=== PATIENT | male | born 1940 | race Caucasian/White ===

== ENCOUNTER 2020-04-13 00:30 | Day surgery (SDC) | payer MEDICARE, OTHER ==
[~2020-04-13] VITALS: Ht 182.8 cm; Wt 84.3 kg
[2020-04-13 00:50] LABS: BASOPHILS % (AUTO) 0 % (0-10); EOSINOPHILS # (AUTO) 0.1 10^3/uL (0.0-0.3); EOSINOPHILS % (AUTO) 1 % (0-10); HEMATOCRIT 38 % (40-54); HEMOGLOBIN 13.1 g/dL (13.3-17.7); LYMPHOCYTES # (AUTO) 4.2 10^3/uL (1.0-4.0); LYMPHOCYTES % (AUTO) 42 % (12-44); MEAN CORPUSCULAR HEMOGLOBIN 30 pg (25-34); MEAN CORPUSCULAR HGB CONC 35 g/dL (32-36); MEAN CORPUSCULAR VOLUME 86 fL (80-99); MEAN PLATELET VOLUME 10.7 fL (9.0-12.2); MONOCYTES # (AUTO) 0.7 10^3/uL (0.0-1.0); MONOCYTES % (AUTO) 7 % (0-12); NEUTROPHILS # (AUTO) 4.8 10^3/uL (1.8-7.8); NEUTROPHILS % (AUTO) 49 % (42-75); PLATELET COUNT 190 10^3/uL (130-400); WHITE BLOOD COUNT 9.9 10^3/uL (4.3-11.0)
[2020-04-13 01:02] LABS: ALBUMIN 4.1 GM/DL (3.2-4.5); CHLORIDE 96 MMOL/L (98-107); POTASSIUM 3.2 MMOL/L (3.6-5.0); SODIUM 137 MMOL/L (135-145)
[2020-04-13 01:03] LABS: CALCIUM 9.6 MG/DL (8.5-10.1); PROTHROMBIN TIME PATIENT 13.3 SEC (12.2-14.7)
[2020-04-13 01:04] LABS: GLUCOSE 157 MG/DL (70-105); TOTAL PROTEIN 7.7 GM/DL (6.4-8.2)
[2020-04-13 01:05] LABS: CARBON DIOXIDE 25 MMOL/L (21-32)
[2020-04-13 01:06] LABS: BILIRUBIN,TOTAL 0.7 MG/DL (0.1-1.0)
[2020-04-13 01:08] LABS: ALKALINE PHOSPHATASE 81 U/L (40-136); CREATININE SERUM 1.23 MG/DL (0.60-1.30); GFR ESTIMATED 57
[2020-04-13 01:09] LABS: BUN/CREATININE RATIO 13
[2020-04-13 01:11] LABS: ALANINE AMINOTRANSFERASE 21 U/L (0-55); CREATINE KINASE 134 U/L (30-200); MAGNESIUM 2.1 MG/DL (1.6-2.4)
--- NOTE | 2020-04-13 01:41 | ED General ---
General Chief Complaint: Chest Pain Stated Complaint: UPPER ABD PAIN Source of Information: Patient History of Present Illness Date Seen by Provider: Apr 13, 2020 Time Seen by Provider: 00:32 Initial Comments PT ARRIVES VIA EMS --HERE VISITING MULTIPLE FAMILY MEMBERS FROM [place], [place]. HAS BEEN HERE SINCE MONDAY STATES TONIGHT, JUST PRIOR TO ARRIVAL, HE GOT OUT OF BED TO GO TO THE BATHROOM TO URINATE, AND WAS VERY WEAK AND WENT DOWN TO HIS KNEES, GOT BACK UP IN BED--TOOK HIM A COUPLE OF TRIES TO GET OUT OF BED. WALKED TO THE BATHROOM AND THEN PASSED OUT--STATES HE DID NOT INJURE HIMSELF. STATES HE WAS OUT ONLY BRIEFLY, AND HIS HEARD HIM AND TOLD HIM THAT HE HAD PASSED OUT FOR A LITTLE BIT. PT STATES THAT HE WAS VERY CLAMMY AND PALE, AND HE HAD EPIGASTRIC PAIN AND SHORTNESS OF BREATH AND THEN HE TOOK A NITROGLYCERIN AND HE FELT MUCH BETTER--EPIGASTRIC PAIN AND SHORTNESS OF BREATH WENT AWAY EMS REPORT THAT BP WAS 90 SYSTOLIC ON THEIR ARRIVAL, THEN UP TO 114/67 WITHOUT TREATMENT AND PT IS NOW SYMPTOM-FREE. ACCUCHECK 179 BY EMS NO NAUSEA/VOMITING/DIARRHEA. NO HEADACHE NO VISION CHANGES NO PALPITATIONS NO SWELLING IN LEGS/ FEET OR PAIN IN CALVES NO FEVER OR RECENT ILLNESS HAS CHRONIC COUGH FOR 3 YEARS, AND IS NO DIFFERENT THAN NORMAL. PT HAD UT 12/2018 AND HAD STENT X 1 PCP: DR. MAHAJAN, [place], [place] DEPLOYMENT SPECIALIST: DR. MADERA [place], [place] Allergies and Home Medications Allergies Coded Allergies: No Known Drug Allergies (Unverified , 04/13/20) Home Medications Acetazolamide 125 Mg Tablet, 125 MG PO BID PRN for MIGRAINE INDUCED WEATHER WOOD, (Reported) Amlodipine Besylate 10 Mg Tablet, 10 MG PO 1800, (Reported) Aspirin 81 Mg Tablet., 81 MG PO DAILY, (Reported) Atorvastatin Calcium 40 Mg Tablet, 40 MG PO MO,WE,FR, (Reported) TAKES AT BEDTIME Calcium Carb & Lact/Vitamin D3 1 Each Tablet, 2 EACH PO BID, (Reported) Chlorthalidone 25 Mg Tablet, 25 MG PO DAILY, (Reported) Erenumab-Aooe 140 Mg/1 Ml Auto.injct, 140 MG SQ MONTHLY, (Reported) Finasteride 5 Mg Tablet, 5 MG PO DAILY, (Reported) Irbesartan 300 Mg Tablet, 300 MG PO 1800, (Reported) Levetiracetam 500 Mg Tablet, 500 MG PO BID, (Reported) Loratadine 10 Mg Tablet, 10 MG PO DAILY, (Reported) Magnesium Oxide 500 Mg Capsule, 500 MG PO DAILY, (Reported) Melatonin 5 Mg Tablet, 15 MG PO HS, (Reported) TAKES 3 (5MG) TABS Multivitamin 1 Each Tablet, 1 EACH PO DAILY, (Reported) Nitroglycerin 0.4 Mg Tab.subl, 0.4 MG SL UD PRN for CHEST PAIN (ANGINA), (Reported) Omeprazole Magnesium 20 Mg Tablet.dr, 20 MG PO DAILY PRN for HEARTBURN, (Reported) Orphenadrine Citrate 100 Mg Tablet.er, 100 MG PO HS, (Reported) Orphenadrine Citrate 100 Mg Tablet.er, 100 MG PO DAILY PRN for MUSCLE SPASMS, (Reported) Prochlorperazine Maleate 10 Mg Tablet, 10-20 MG PO DAILY PRN for NAUSEA/VO MITING-4TH LINE, (Reported) Riboflavin 100 Mg Tablet, 100 MG PO DAILY, (Reported) Tamsulosin HCl 0.4 Mg Cap, 0.4 MG PO DAILY, (Reported) Turmeric/Turmeric Root Extract 1 Each Capsule, 1 EACH PO DAILY, (Reported) Patient Home Medication List Home Medication List Reviewed: Yes Review of Systems Review of Systems Constitutional: see HPI; No fever EENTM: no symptoms reported Respiratory: see HPI, short of breath Cardiovascular: see HPI, chest pain (LOWER STERUM/EPIGASTRIC AREA); No edema, No palpitations, No syncope Gastrointestinal: see HPI, abdominal pain; No diarrhea, No nausea, No vomiting Genitourinary: no symptoms reported Musculoskeletal: no symptoms reported; No back pain Skin: no symptoms reported Psychiatric/Neurological: See HPI (SYNCOPE); Denies Headache, Denies Numbness, Denies Paresthesia, Denies Seizure, Denies Tingling; Weakness (GENERALIZED WEAKNESS) Hematologic/Lymphatic: No Symptoms Reported Immunological/Allergic: no symptoms reported Past Zzgmbpo-Khhivm-Mmpzik Hx Past Med/Social Hx: Reviewed and Corrections made Patient Social History Alcohol Use: Denies Use Smoking Status: Never a Smoker Recent Hopitalizations: No Immunizations Up To Date Date of Influenza Vaccine: Dec 14, 2019 Seasonal Allergies Seasonal Allergies: No Past Medical History Surgeries: Yes ("2 hernia, right knee, right shoulder") Abdominal, Cardiac, Coronary Stent, Orthopedic Respiratory: No Cardiac: Yes (UT 12/2018 WITH STENT X 1) Coronary Artery Disease, Heart Attack, High Cholesterol, Hypertension Neurological: Yes (DAILY MIGRAINES--ON MULTIPLE MEDS FOR THIS) Headaches /Migraines Genitourinary: Yes Benign Prostatic Hyperpl Gastrointestinal: Yes Gastroesophageal Reflux Musculoskeletal: Yes (right knee, right shoulder SURGERIES) Arthritis Endocrine: No HEENT: No Cancer: No Psychosocial: No Integumentary: No Blood Disorders: No Physical Exam Vital Signs Vital Signs - First Documented 04/13/20 00:30 Temp 37.0 Pulse 59 Resp 16 B/P (MAP) 115/81 (92) Pulse Ox 97 O2 Delivery Room Air Capillary Refill : Height, Weight, BMI Height: '" Weight: lbs. oz. kg; BMI Method: General Appearance: No Apparent Distress, WD/WN HEENT: PERRL/EOMI Neck: Full Range of Motion, Normal Inspection, Non Tender, Supple; No Carotid Bruit, No JVD Respiratory: Chest Non Tender, Normal Breath Sounds, No Accessory Muscle Use, No Respiratory Distress Cardiovascular: Regular Rate, Rhythm, No Edema, No JVD, No Murmur, Normal Peripheral Pulses Gastrointestinal: Non Tender, Soft Back: No CVA Tenderness Extremity: Normal Capillary Refill, Normal Inspection, Normal Range of Motion, Non Tender, No Calf Tenderness, No Pedal Edema Neurologic/Psychiatric: Alert, Oriented x3, No Motor/Sensory Deficits, Normal Mood/Affect, bid clerk II-XII Norm as Tested Skin: Normal Color, Warm/Dry; No Rash Progress/Results/Core Measures Suspected Sepsis SIRS Temperature: Pulse: Respiratory Rate: Laboratory Tests 04/13/20 00:30: White Blood Count 9.9 Blood Pressure / Mean: Laboratory Tests 04/13/20 00:30: Creatinine 1.23, INR Comment 1.0, Platelet Count 190, Total Bilirubin 0.7 Results/Orders Lab Results Laboratory Tests Test 04/13/20 00:30 04/13/20 00:40 04/13/20 04:10 04/13/20 04:46 Range/Units White Blood Count 9.9 4.3-11.0 10^3/uL Red Blood Count 4.42 4.30-5.52 10^6/uL Hemoglobin 13.1 L 13.3-17.7 g/dL Hematocrit 38 L 40-54 % Mean Corpuscular Volume 86 80-99 fL Mean Corpuscular Hemoglobin 30 25-34 pg Mean Corpuscular Hemoglobin Concent 35 32-36 g/dL Red Cell Distribution Width 12.8 10.0-14.5 % Platelet Count 190 130-400 10^3/uL Mean Platelet Volume 10.7 9.0-12.2 fL Immature Granulocyte % (Auto) 0 % Neutrophils (%) (Auto) 49 42-75 % Lymphocytes (%) (Auto) 42 12-44 % Monocytes (%) (Auto) 7 0-12 % Eosinophils (%) (Auto) 1 0-10 % Basophils (%) (Auto) 0 0-10 % Neutrophils # (Auto) 4.8 1.8-7.8 10^3/uL Lymphocytes # (Auto) 4.2 H 1.0-4.0 10^3/uL Monocytes # (Auto) 0.7 0.0-1.0 10^3/uL Eosinophils # (Auto) 0.1 0.0-0.3 10^3/uL Basophils # (Auto) 0.0 0.0-0.1 10^3/uL Immature Granulocyte # (Auto) 0.0 0.0-0.1 10^3/uL Prothrombin Time 13.3 12.2-14.7 SEC INR Comment 1.0 0.8-1.4 Activated Partial Thromboplast Time 26 24-35 SEC Sodium Level 137 135-145 MMOL/L Potassium Level 3.2 L 3.6-5.0 MMOL/L Chloride Level 96 L 98-107 MMOL/L Carbon Dioxide Level 25 21-32 MMOL/L Anion Gap 16 H 5-14 MMOL/L Blood Urea Nitrogen 16 7-18 MG/DL Creatinine 1.23 0.60-1.30 MG/DL Estimat Glomerular Filtration Rate 57 BUN/Creatinine Ratio 13 Glucose Level 157 H 70-105 MG/DL Calcium Level 9.6 8.5-10.1 MG/DL Corrected Calcium 9.5 8.5-10.1 MG/DL Magnesium Level 2.1 1.6-2.4 MG/DL Total Bilirubin 0.7 0.1-1.0 MG/DL Aspartate Amino Transf (AST/SGOT) 24 5-34 U/L Alanine Aminotransferase (ALT/SGPT) 21 0-55 U/L Alkaline Phosphatase 81 40-136 U/L Total Creatine Kinase 134 30-200 U/L Creatine Kinase MB 3.0 <6.6 NG/ML Myoglobin 91.3 10.0-92.0 NG/ML Troponin I < 0.028 < 0.028 <0.028 NG/ML B-Type Natriuretic Peptide 15.4 <100.0 PG/ML Total Protein 7.7 6.4-8.2 GM/DL Albumin 4.1 3.2-4.5 GM/DL Coronavirus 2019 ([facility]) Negative Negative Urine Color YELLOW Urine Clarity CLEAR Urine pH 8.0 5-9 Urine Specific [place] 1.010 L 1.016-1.022 Urine Protein NEGATIVE NEGATIVE Urine Glucose (UA) NEGATIVE NEGATIVE Urine Ketones NEGATIVE NEGATIVE Urine Nitrite NEGATIVE NEGATIVE Urine Bilirubin NEGATIVE NEGATIVE Urine Urobilinogen 0.2 < = 1.0 MG/DL Urine Leukocyte Esterase NEGATIVE NEGATIVE Urine RBC (Auto) 1+ H NEGATIVE Urine RBC 2-5 H /HPF Urine WBC RARE /HPF Urine Squamous Epithelial Cells NONE /HPF Urine Crystals NONE /LPF Urine Bacteria NEGATIVE /HPF Urine Casts NONE /LPF Urine Mucus NEGATIVE /LPF Urine Culture Indicated NO My Orders Orders - MERY ROTHMAN DO Ed Iv/Invasive Line Start (04/13/20 00:37) Monitor-Rhythm Ecg Trace Only (04/13/20 00:37) BNP (04/13/20 00:37) Cbc With Automated Diff (04/13/20 00:37) Comprehensive Metabolic Panel (04/13/20 00:37) Creatine Kinase (04/13/20 00:37) Creatine Kinase Mb (04/13/20 00:37) Magnesium (04/13/20 00:37) Protime With Inr (04/13/20 00:37) Partial Thromboplastin Time (04/13/20 00:37) Ua Culture If Indicated (04/13/20 00:37) Myoglobin Serum (04/13/20 00:37) Troponin I (04/13/20 00:37) Ed Iv/Invasive Line Start (04/13/20 00:37) Covid 19 Inhouse Test (04/13/20 00:37) Ct [place] Chest/Noang Abd-Pelv W (04/13/20 01:25) Chest 1 View, Ap/Pa Only (04/13/20 01:26) Ct Head Wo-R/O Stroke (04/13/20 01:41) Ed Iv/Invasive Line Start (04/13/20 02:43) Ed Iv/Invasive Line Start (04/13/20 02:43) Ns Iv 1000 Ml (Sodium Chloride 0.9%) (04/13/20 02:45) Troponin I (04/13/20 03:59) Ekg Tracing (04/13/20 03:59) Iohexol Injection (Omnipaque 350 Mg/Ml 1 (04/13/20 04:15) Received Contrast (Hold Metformin- Contr (04/13/20 04:15) Ns (Ivpb) (Sodium Chloride 0.9% Ivpb Bag (04/13/20 04:15) Potassium Chloride (Tablet) (Klor Con Ta (04/13/20 04:15) Enoxaparin Injection (Lovenox Injection) (04/13/20 04:45) Aspirin Chewable Tablet (Baby Aspirin Ch (04/13/20 05:00) Medications Given in ED Vital Signs/I&O 04/13/20 04/13/20 04/13/20 04/13/20 08:38 11:48 12:52 13:00 Temp 36.7 36.9 Pulse 66 66 69 62 Resp 15 12 B/P (MAP) 119/68 (85) 135/75 (95) Pulse Ox 95 95 O2 Delivery Room Air Room Air 04/13/20 04/13/20 04/13/20 13:00 15:28 19:29 Temp 36.8 37.2 Pulse 62 71 Resp 12 18 B/P (MAP) 133/58 (83) 120/96 (104) Pulse Ox 94 94 O2 Delivery Room Air Room Air Room Air Capillary Refill : Progress Note : Progress Note COVID TESTING DONE AND RAPID TEST WAS NEGATIVE PT HAS HAD NO COVID-19 SYMPTOMS, AND NO KNOWN EXPOSURE TO COVID, BUT HAS BEEN TRAVELING THIS WEEKEND AND HAS BEEN AROUND MULTIPLE FAMILY MEMBERS PT HAD COUPLE OF BRIEF EPISODES OF BRADYCARDIA DOWN TO LOW 30'S--PT ASYMPTOMATIC WHILE LAYING IN BED. THEN HR BACK UP TO 60'S. PT ALSO HAD EPISODES OF BIGEMINY, AGAIN ASYMPTOMATIC. PT HAD NO SYMPTOMS OF ANY KIND FOR ENTIRE ER STAY REPEAT EKG AND TROPONIN DONE AND ARE BOTH NEGATIVE/UNCHANGED EKG PT UNABLE TO VOID, STATES BLADDER FEELS FULL, BUT FREQUENTLY HAS DIFFICULTY URINATING HICKEY PLACED WITH IMMEDIATE RETURN OF > 600 ML URINE ECG Initial ECG Impression Date: Apr 13, 2020 Initial ECG Impression Time: 00:36 Initial ECG Rate: 62 Initial ECG Rhythm: Normal Sinus (IVCD) Initial ECG Comparisson: No Previous ECG Available EKG : EKG Time: 04:09 Rate: 66 Rhythm: Normal Sinus (IVCD) ECG Comparisson: Unchanged Diagnostic Imaging Comments CXR--NO ACUTE PROCESS, PENDING RADIOLOGIST REVIEW CT HEAD--NO ACUTE INTRACRANIAL PROCESS, PER [facility] VIA FAX AT [address] CT ANGIOGRAM CHEST / ABDOMEN AND PELVIS--NO P.E. OR ACUTE PROCESS, PER [facility] VIA FAX AT [id number] Reviewed: Reviewed by Ak Departure Communication (Admissions) [id number]--SPOKE WITH DR. MICHAEL, HOSPITALIST, ACCEPTS PT FOR ADMIT. Impression Primary Impression: SYNCOPAL EPISODE Additional Impressions: Chest pain Person under investigation for COVID-19 EPISODES OF BRADYCARDIA EPISODES OF BIGEMINY HX OF UT WITH STENT Urinary retention Disposition: ADMITTED INPATIENT Condition: Stable Admissions Decision to Admit Reason: Admit from ER (General) Decision to Admit/Date: Apr 13, 2020 Time/Decision to Admit Time: 04:25 MERY ROTHMAN DO Apr 13, 2020 01:41
[2020-04-13] MEDS ORDERED: NS IV 1000 ML 1,000 ML IV SCH (02:45)
[2020-04-13] MEDS ORDERED: HOLD METFORMIN - RECEIVED CONTRAST 20 ML VIAL IV SCH (04:15)
[2020-04-13] MEDS ORDERED: KCL 10 MEQ TAB (MICRO K) PO ONE (04:15)
[2020-04-13] MEDS ORDERED: IOHEXOL 350 MG/ML 100 ML (OMNIPAQUE 350) VIAL IV ONE (04:15)
[2020-04-13] MEDS ORDERED: NS 100 ML (IVPB) BAG IV ONE (04:15)
[2020-04-13] MEDS ORDERED: ENOXAPARIN 80 MG/0.8 ML (LOVENOX) SYR SC ONE (04:45)
[2020-04-13 04:52] LABS: BILIRUBIN,URINE NEGATIVE (NEGATIVE); CLARITY,URINE CLEAR; COLOR,URINE YELLOW; GLUCOSE, URINE (UA) NEGATIVE (NEGATIVE); KETONES,URINE NEGATIVE (NEGATIVE); LEUKOCYTE ESTERASE ,URINE NEGATIVE (NEGATIVE); NITRITE,URINE NEGATIVE (NEGATIVE); PROTEIN,URINE NEGATIVE (NEGATIVE)
[2020-04-13] MEDS ORDERED: ASPIRIN 81 MG CHEW (CHILDREN'S ASA) PO ONE (05:00)
[2020-04-13 05:01] LABS: BACTERIA,URINE NEGATIVE /HPF; WBC,URINE RARE /HPF
--- NOTE | 2020-04-13 05:43 | Diagnostic Imaging Report ---
INDICATION: CP COMPARISON: None FINDINGS: Single frontal view of the chest demonstrates normal heart size and pulmonary vascularity. The lungs show low inspiratory volumes, but are otherwise clear. No large pleural effusion or pneumothorax is seen. The visualized osseous structures show no acute abnormalities. IMPRESSION: 1. No acute cardiopulmonary process. Dictated by: Dictated on workstation # [id number]
--- NOTE | 2020-04-13 05:56 | Diagnostic Imaging Report ---
INDICATION: Neurological deficits. TECHNIQUE: Routine non contrast-enhanced axial images were obtained from the skull base to the vertex. Auto Exposure Controls were utilized during the CT exam to meet ALARA standards for radiation dose reduction COMPARISON: None. FINDINGS: The ventricles and cortical sulci are diffusely prominent, compatible with age-related volume loss. There are confluent areas of abnormal, low attenuation in the periventricular white matter. This is consistent with small vessel ischemic changes; age-indeterminate. There is no prior study available for comparison. There is no midline shift or mass-effect. No acute intra-axial hemorrhage is seen. There are no abnormal areas of increased or decreased density to suggest acute hemorrhage or edema. No extra-axial masses or collections are present. The bony calvarium is intact. The visualized paranasal sinuses show small air-fluid levels within the included portions of the bilateral maxillary sinuses. The mastoid air cells are clear. IMPRESSION: 1. No acute intracranial abnormality. No CT evidence of mass, acute infarct or intracranial hemorrhage. 2. Small vessel ischemic changes in the periventricular and subcortical white matter; likely chronic. 3. Bilateral maxillary sinus disease. Correlation with acute sinusitis is recommended. 4. I agree with [place] report. Dictated by: Dictated on workstation # [id number]
[2020-04-13] MEDS ORDERED: 1/2 NS W/KCL 20 MEQ/L 1,000 ML IV ONE (06:27)
[2020-04-13] MEDS: 1/2 NS W/KCL 20 MEQ/L 1,000 ML IV SCH ×2 (07:00→15:21)
[2020-04-13] MEDS ORDERED: ONDANSETRON 4 MG/2 ML (SDV) Z0FRAN IVP PRN (07:00)
[2020-04-13] MEDS ORDERED: morphine INJ 4 MG/ML 1 ML (VIAL/SYRINGE) IV PRN (07:00)
[2020-04-13] MEDS ORDERED: NITROGLYCERIN 0.4 MG SL TABS BTL 25'S SL PRN ×2 (07:00→14:30)
--- NOTE | 2020-04-13 07:02 | Diagnostic Imaging Report ---
Exam: 1. CT angiography chest with intravenous contrast. 2. CT abdomen and pelvis with intravenous contrast. Date: April 13, 2020. Indication: 79-year-old male, chest and epigastric pain. Comparison: None. Technique: 1. Axial CT angiography images of the chest were obtained with intravenous contrast. Coronal and sagittal reformats as well as 3-dimensional reformats were obtained and provided. 2. Axial CT images of the abdomen and pelvis were obtained following the intravenous administration of contrast. Coronal and sagittal reformats were obtained and provided. All CT scans use one or more of the following dose optimizing techniques: automated exposure control, MA and/or KvP adjustment based on a patient size and exam type, or iterative reconstruction. . Findings: There are dependent predominantly linear opacities in the right lower lobe and left lower lobe most consistent with atelectasis. There is no identified pulmonary nodule. There is no lung mass. There is no additional focal airspace consolidation. There is no pneumothorax. There is no pleural effusion. The central airways are patent. There is no identified pulmonary embolus. The main pulmonary artery is normal in caliber. The heart is borderline enlarged. There are atherosclerotic calcifications. There is a bovine aortic arch. There is no identified abnormally enlarged mediastinal, hilar, or axillary lymph node which meets CT size criteria for adenopathy. There is an 11 mm nodule in thyroid isthmus. The liver is normal in size and contour. There is no identified liver lesion. The main, right, left portal veins are patent. The gallbladder is unremarkable. There is no intrahepatic or extrahepatic bile duct dilation. The main pancreatic duct is not abnormally dilated. Unremarkable appearance of the pancreatic parenchyma. The spleen is normal in size. The adrenal glands are unremarkable. The renal parenchyma is unremarkable in appearance. The urinary collecting systems are not distended. There is no identified renal or ureteral stone. Urinary bladder is unremarkable. The intestinal tract is not distended. There is no evidence of acute appendicitis. There is high attenuation in the appendix without dilation of the appendix or adjacent inflammatory stranding. There is no free intraperitoneal air. There is no drainable fluid collection. There is no free pelvic fluid. There is a very small fat-containing umbilical hernia. There are atherosclerotic calcifications. There is no identified abnormally enlarged lymph node in the abdomen or pelvis meeting CT size criteria for adenopathy. 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 There are bilateral sacroiliac degenerative changes. There are degenerative changes of the spine. There is bilateral glenohumeral arthritis. There is no identified acute bony abnormality. Impression: 1. No identified acute cardiopulmonary abnormality. 2. No identified acute abnormality in the abdomen or pelvis. 3. 11 mm nodule in the thyroid isthmus. Consider nonemergent thyroid ultrasound for further assessment. Dictated by: Dictated on workstation # [id number]
[2020-04-13 08:38] VITALS: BP 119/68
--- NOTE | 2020-04-13 08:43 | Consultation-Cardiology ---
HPI-Cardiology Cardiology Consultation: Date of Consultation 04/13/20 Time Seen by a Provider: 08:45 Date of Admission 04-12-20 Attending Physician Alondra Davis MD Admitting Physician No,Local Physician Consulting Physician Barak Pizano MD HPI: Chief Complaint: Chest pain Mr. Pa is a 79 yr old male admitted to [facility] from the ED with c/o CP. He is from [place], [place] and is visiting his son and grandson. He woke up around 11:30 last night to use the BR. He reports he sat up on the side of the bed and felt weak, dizzy. He sat down for a few minutes, began to feel better. He got up and walked to the bathroom, but began to feel weak, dizzy, SOB, diaphoretic and his legs gave out on him. He states he caught himself on the bathroom vanity and feel to his knees. His heard him and found him on the floor. He was unable to get himself up on his own. His son came and helped him. He was initially having epigastric discomfort. He was able to get to the dining room table with assistance from his son. He was having chest pressure radiating across his chest. He states he still felt weak, dizzy, clammy. He reports it lasted for approx 45 minutes. He states he did take one nitro at home, which did help. He states this morning while getting up to use the urinal he did have some lower chest discomfort which did not radiate. Rates it as a 1 on a 1-10 pain scale. Review of Systems-Cardiology Review of Systems Constitutional: No chills, No fever; lightheadedness Eyes: No vision change Ears/Nose/Throat: No epistaxis, No recent hearing loss Respiratory: As described under HPI Cardiovascular: As described under HPI Gastrointestinal: No diarrhea, No nausea, No vomiting Genitourinary: No dysuria, No hematuria Musculoskeletal: back pain Skin: No rash on exposed areas, No ulcerations on exposed areas Psychiatric/Neurological: As described under HPI Hematologic: No bleeding abnormalities NFG-Pslauu-Kiotfr Hx Patient Social History Smoking Status: Never a Smoker Immunizations Up To Date Date of Influenza Vaccine: Dec 14, 2019 Past Medical History PMH As described under Assessment. Family Medical History Family Medical History: He reports his mother had CAD and PR. He reports his father at age 55 from an PR. He reports a brother with CAD who was on the transplant list, . He reports a sister with an PR. He reports a brother with cardiomyopathy. He reports another brother with CAD. He reports 2 daughters and a son with Factor V Leiden Allergies and Home Medications Allergies Coded Allergies: No Known Drug Allergies (Unverified , 04/13/20) Home Medications Acetazolamide 125 Mg Tablet, 125 MG PO BID PRN for MIGRAINE INDUCED WEATHER WOOD, (Reported) Amlodipine Besylate 10 Mg Tablet, 10 MG PO 1800, (Reported) Aspirin 81 Mg Tablet.dr, 81 MG PO DAILY, (Reported) Atorvastatin Calcium 40 Mg Tablet, 40 MG PO MO,WE,FR, (Reported) TAKES AT BEDTIME Calcium Carb & Lact/Vitamin D3 1 Each Tablet, 2 EACH PO BID, (Reported) Chlorthalidone 25 Mg Tablet, 25 MG PO DAILY, (Reported) Erenumab-Aooe 140 Mg/1 Ml Auto.injct, 140 MG SQ MONTHLY, (Reported) Finasteride 5 Mg Tablet, 5 MG PO DAILY, (Reported) Irbesartan 300 Mg Tablet, 300 MG PO 1800, (Reported) Levetiracetam 500 Mg Tablet, 500 MG PO BID, (Reported) Loratadine 10 Mg Tablet, 10 MG PO DAILY, (Reported) Magnesium Oxide 500 Mg Capsule, 500 MG PO DAILY, (Reported) Melatonin 5 Mg Tablet, 15 MG PO HS, (Reported) TAKES 3 (5MG) TABS Multivitamin 1 Each Tablet, 1 EACH PO DAILY, (Reported) Nitroglycerin 0.4 Mg Tab.subl, 0.4 MG SL UD PRN for CHEST PAIN (ANGINA), (Reported) Omeprazole Magnesium 20 Mg Tablet.dr, 20 MG PO DAILY PRN for HEARTBURN, (Reported) Orphenadrine Citrate 100 Mg Tablet.er, 100 MG PO HS, (Reported) Orphenadrine Citrate 100 Mg Tablet.er, 100 MG PO DAILY PRN for MUSCLE SPASMS, (Reported) Prochlorperazine Maleate 10 Mg Tablet, 10-20 MG PO DAILY PRN for NAUSEA/VOMITING-4TH LINE, (Reported) Riboflavin 100 Mg Tablet, 100 MG PO DAILY, (Reported) Tamsulosin HCl 0.4 Mg Cap, 0.4 MG PO DAILY, (Reported) Turmeric/Turmeric Root Extract 1 Each Capsule, 1 EACH PO DAILY, (Reported) Physical Exam-Cardiology Physical Exam Vital Signs/I&O 04/14/20 04/14/20 04/14/20 00:00 01:00 04:00 Pulse 65 62 60 Resp 20 17 B/P (MAP) 128/72 (90) Pulse Ox 98 O2 Delivery Room Air Room Air 04/13/20 23:59 Intake Total 2690 ml Output Total 1225 ml Balance 1465 ml Capillary Refill : Less Than 3 Seconds Constitutional: AAO x 3, well-developed, well-nourished HEENT: PERRL, hearing is well preserved, oral hygience is good Neck: No carotid bruit; carotid pulses are 2 + bilaterally Respiratory: No accessory muscle use, No respiratory distress; chest expansion is symmetric, chest is bilaterally symmetric, lungs clear to auscultation Cardiovascular: regular rate-rhythm; No JVD; S1 and S2 Gastrointestinal: No tender; soft, round, audible bowel sounds Extremities: no lower extremity edema bilateral Neurologic/Psychiatric: grossly intact (moves all extremities) Skin: No rash on exposed areas, No ulcerations on exposed areas Data Review Labs Laboratory Tests 04/14/20 03:45: White Blood Count 8.6, Red Blood Count 4.27L, Hemoglobin 12.3L, Hematocrit 36L, Mean Corpuscular Volume 85, Mean Corpuscular Hemoglobin 29, Mean Corpuscular Hemoglobin Concent 34, Red Cell Distribution Width 12.9, Platelet Count 167, Mean Platelet Volume 10.3, Immature Granulocyte % (Auto) 0, Neutrophils (%) (Auto) 60, Lymphocytes (%) (Auto) 30, Monocytes (%) (Auto) 8, Eosinophils (%) (Auto) 2, Basophils (%) (Auto) 0, Neutrophils # (Auto) 5.2, Lymphocytes # (Auto) 2.6, Monocytes # (Auto) 0.6, Eosinophils # (Auto) 0.2, Basophils # (Auto) 0.0, Immature Granulocyte # (Auto) 0.0, Prothrombin Time 13.4, INR Comment 1.0, Activated Partial Thromboplast Time 31, Sodium Level 135, Potassium Level 3.5L, Chloride Level 101, Carbon Dioxide Level 25, Anion Gap 9, Blood Urea Nitrogen 14, Creatinine 1.01, Estimat Glomerular Filtration Rate > 60, BUN/Creatinine Ratio 14, Glucose Level 103, Calcium Level 8.6, Corrected Calcium 8.8, Total Bilirubin 1.0, Aspartate Amino Transf (AST/SGOT) 22, Alanine Aminotransferase (ALT/SGPT) 22, Alkaline Phosphatase 80, Total Protein 6.5, Albumin 3.7, Triglycerides Level 159H, Cholesterol Level 96, LDL Cholesterol Direct 49, VLDL Cholesterol 32, HDL Cholesterol 32L Microbiology 04/13/20 MRSA Screen - Final, Complete MRSA not isolated Radiology NAME: MATTHEW PA [facility] REC#: [id number] PT STATUS: ADM IN : 1940 PHYSICIAN: MERY ROTHMAN DO ADMIT DATE: 04/13/20/[facility] Draft Date of Exam:04/13/20 CT HEAD WO-R/O STROKE INDICATION: Neurological deficits. TECHNIQUE: Routine non contrast-enhanced axial images were obtained from the skull base to the vertex. Auto Exposure Controls were utilized during the CT exam to meet ALARA standards for radiation dose reduction COMPARISON: None. FINDINGS: The ventricles and cortical sulci are diffusely prominent, compatible with age-related volume loss. There are confluent areas of abnormal, low attenuation in the periventricular white matter. This is consistent with small vessel ischemic changes; age-indeterminate. There is no prior study available for comparison. There is no midline shift or mass-effect. No acute intra-axial hemorrhage is seen. There are no abnormal areas of increased or decreased density to suggest acute hemorrhage or edema. No extra-axial masses or collections are present. The bony calvarium is intact. The visualized paranasal sinuses show small air-fluid levels within the included portions of the bilateral maxillary sinuses. The mastoid air cells are clear. IMPRESSION: 1. No acute intracranial abnormality. No CT evidence of mass, acute infarct or intracranial hemorrhage. 2. Small vessel ischemic changes in the periventricular and subcortical white matter; likely chronic. 3. Bilateral maxillary sinus disease. Correlation with acute sinusitis is recommended. 4. I agree with Deni report. Dictated on workstation # [id number] Dict: 04/13/20 0552 Trans: 04/13/20 0555 [id number] Interpreted by: NORRIS MCCALL MD Electronically signed by: NAME: MATTHEW PA [facility] REC#: [id number] PT STATUS: ADM IN : 1940 PHYSICIAN: MERY ROTHMAN DO ADMIT DATE: 04/13/20/[facility] Signed Date of Exam:04/13/20 CT SOL CHEST/NOANG ABD-PELV W Exam: 1. CT angiography chest with intravenous contrast. 2. CT abdomen and pelvis with intravenous contrast. Date: April 13, 2020. Indication: 79-year-old male, chest and epigastric pain. Comparison: None. Technique: 1. Axial CT angiography images of the chest were obtained with intravenous contrast. Coronal and sagittal reformats as well as 3-dimensional reformats were obtained and provided. 2. Axial CT images of the abdomen and pelvis were obtained following the intravenous administration of contrast. Coronal and sagittal reformats were obtained and provided. All CT scans use one or more of the following dose optimizing techniques: automated exposure control, MA and/or KvP adjustment based on a patient size and exam type, or iterative reconstruction. . Findings: There are dependent predominantly linear opacities in the right lower lobe and left lower lobe most consistent with atelectasis. There is no identified pulmonary nodule. There is no lung mass. There is no additional focal airspace consolidation. There is no pneumothorax. There is no pleural effusion. The central airways are patent. There is no identified pulmonary embolus. The main pulmonary artery is normal in caliber. The heart is borderline enlarged. There are atherosclerotic calcifications. There is a bovine aortic arch. There is no identified abnormally enlarged mediastinal, hilar, or axillary lymph node which meets CT size criteria for adenopathy. There is an 11 mm nodule in thyroid isthmus. The liver is normal in size and contour. There is no identified liver lesion. The main, right, left portal veins are patent. The gallbladder is unremarkable. There is no intrahepatic or extrahepatic bile duct dilation. The main pancreatic duct is not abnormally dilated. Unremarkable appearance of the pancreatic parenchyma. The spleen is normal in size. The adrenal glands are unremarkable. The renal parenchyma is unremarkable in appearance. The urinary collecting systems are not distended. There is no identified renal or ureteral stone. Urinary bladder is unremarkable. The intestinal tract is not distended. There is no evidence of acute appendicitis. There is high attenuation in the appendix without dilation of the appendix or adjacent inflammatory stranding. There is no free intraperitoneal air. There is no drainable fluid collection. There is no free pelvic fluid. There is a very small fat-containing umbilical hernia. There are atherosclerotic calcifications. There is no identified abnormally enlarged lymph node in the abdomen or pelvis meeting CT size criteria for adenopathy. 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 There are bilateral sacroiliac degenerative changes. There are degenerative changes of the spine. There is bilateral glenohumeral arthritis. There is no identified acute bony abnormality. Impression: 1. No identified acute cardiopulmonary abnormality. 2. No identified acute abnormality in the abdomen or pelvis. 3. 11 mm nodule in the thyroid isthmus. Consider nonemergent thyroid ultrasound for further assessment. Dictated by: Dictated on workstation # [id number] Dict: 04/13/20 0616 Trans: 04/13/20 0751 CVB [id number] Interpreted by: DANIELLA ARMENTA MD Electronically signed by: DAINELLA ARMENTA MD 04/13/20 0751 ECG Impression ECG Initial ECG Rhythm: Normal Sinus A/P-Cardiology Assessment/Admission Diagnosis Chest pain of undetermined etiology Syncope of undetermined etiology CAD with h/o PR in 2019 - h/o stent placed in 2019 at [facility] in [place], [place] - Dr. Poole is primary renewable energy consultant INTOLERANT TO PLAVIX - reports ALCANTAR, weakness - able to tolerate Brilinta Hypokalemia likely d/t chronic diuretic regimen HTN HLD - statin tx GERD H/O Factor V Leiden (2 daughters and a son also are +) H/O "phlebitis" in right arm for which he completed 6 months of Eliquis Chronic migraines Chronic hip, back pain H/O Rheumatic fever as a child Thyroid nodule seen on CTA on 04-12-20 - advise out pt f/u Family h/o CAD (mother, father, 3 brothers and a sister) Discussion and Recomendations Chest pain of undetermined etiology with h/o CAD and other risk factors as noted above. He has had another episode of chest discomfort, non-specific, could be anginal equivalent. Advise cardiac cath. We have discussed the procedure, risks, benefits and potential complications of cardiac cath with possible ad hoc coronary intervention. He verbalizes understanding and provides informed consent. Continue ASA Change Lovenox to therapeutic dosing He reports episodes of bradycardia in the ED with HR in the 30's. This makes him not suitable for BB tx. Continue home medications of ARB and statin Mild hypokalemia - stop diuretic regimen Echocardiogram today to eval structure and function Request records from [facility] in [place], [place] Further recs will be based on his hospital course We would like to thank medical services for this consult Clinical Quality Measures AMI/AHF: ASA po Prior to arrival: WADE Shearer Apr 13, 2020 08:43
--- NOTE | 2020-04-13 08:52 | History & Physical-Hospitalist ---
RADHA HAWKINS,MED STUDENT 04/13/20 0852: History of Present Illness HPI/Chief Complaint Patient is a 79yo male who presented to [facility] ED via EMS c/o weakness and a fall onto the bathroom floor. He is here visiting family and states that last night he got out of bed to go to the bathroom and his legs felt weak and "like they had no strength". He got back in bed and then tried two more times. He reports he eventually made it to the bathroom, but then his legs became too weak to stand and he fell but caught himself using the sink before he fell all the way down. He states his thinks he passed out briefly, but he denies hitting his head. He also reports feeling "clammy", looking pale and mild epigastric pain and shortness of breath. He had an AZ in 12/2018 with x1 stent placed, and states the pain this time feels different and is "lower" in the abdomen. He took a nitroglycerin and says he felt better after this, and notes his epigastric pain and SOB resolved. He notes feeling fine before going to bed and has never experienced a similar episode before. He denies any recent medications changes. Per EMS, systolic blood pressure was in the 90's on arrival, but had improved to 114/67 without intervention. Source: patient Exam Limitations: no limitations Date Seen 04/13/20 Attending Physician Alondra Davis MD PCP No,Local Physician Referring Physician Date of Admission Apr 13, 2020 at 04:25 Home Medications & Allergies Home Medications Reviewed patient Home Medication Reconciliation performed by pharmacy medication reconciliations animal technician and/or nursing. Patients Allergies have been reviewed. Allergies Allergies Coded Allergies No Known Drug Allergies (Unverified04/13/20) Past Dvfbkby-Fqmlbd-Brkdjo Hx Past Med/Social Hx: Reviewed and Corrections made Patient Social History Marrital Status: Alcohol Use: Denies Use Recreational Drug Use: No Smoking Status: Former Smoker (Quit 50 years ago) Recent Foreign Travel: No Contact w/other who traveled: No Recent Hopitalizations: No Recent Infectious Disease Expo: No Immunizations Up To Date Date of Influenza Vaccine: Dec 14, 2019 Seasonal Allergies Seasonal Allergies: No Past Medical History Surgeries: Abdominal, Cardiac, Coronary Stent, Orthopedic Cardiac: Coronary Artery Disease, Heart Attack, High Cholesterol, Hypertension Neurological: Headaches /Migraines Genitourinary: Benign Prostatic Hyperpl Gastrointestinal: Gastroesophageal Reflux Musculoskeletal: Arthritis History of Blood Disorders: No Review of Systems Constitutional: see HPI; No chills, No dizziness, No fever; weakness EENTM: No hearing loss, No blurred vision, No double vision, No vision loss Respiratory: No cough; short of breath; No wheezing Cardiovascular: No chest pain, No edema, No palpitations, No syncope Gastrointestinal: abdominal pain (LUQ); No constipation, No diarrhea; he artburn; No nausea, No vomiting Genitourinary: No dysuria, No frequency, No hematuria Musculoskeletal: no symptoms reported Skin: no symptoms reported Psychiatric/Neurological: No Symptoms Reported Physical Exam Physical Exam Vital Signs Vital Signs - First Documented 04/13/20 00:30 Temp 37.0 Pulse 59 Resp 16 B/P (MAP) 115/81 (92) Pulse Ox 97 O2 Delivery Room Air Capillary Refill : Less Than 3 Seconds Height, Weight, BMI Height: '" Weight: lbs. oz. kg; 25.00 BMI Method: General Appearance: No Apparent Distress, WD/WN HEENT: PERRL/EOMI, Pharynx Normal, Moist Mucous Membranes Neck: Full Range of Motion, Non Tender, Supple; No Carotid Bruit Respiratory: Lungs Clear, No Accessory Muscle Use, No Respiratory Distress Cardiovascular: Regular Rate, Rhythm, No Edema, No Murmur, Normal Peripheral Pulses Gastrointestinal: Normal Bowel Sounds, Non Tender, Soft Extremity: Normal Capillary Refill, Non Tender, No Calf Tenderness, No Pedal Ed david Neurologic/Psychiatric: Alert, Oriented x3, Normal Mood/Affect Skin: Normal Color, Warm/Dry Results Results/Procedures Labs Laboratory Tests 04/13/20 00:30 Patient resulted labs reviewed. Assessment/Plan Assessment and Plan Syncopal episode Cardiology consulted, recommend heart cath tomorrow Scheduled for echo today Continue aspirin Change Lovenox to 80mg SC Q12H Hypokalemia Replacing Hold diuretics Hypertension Hold home medications Continue to monitor Hyperlipidemia Continue atorvastatin Clinical Quality Measures AMI/AHF: ASA po Prior to arrival: EVA Schwab MD 04/13/20 1423: History of Present Illness Time Seen by a Provider: 14:16 Assessment/Plan Admission Diagnosis Chest pain and near syncope Admission Status: Observation Assessment and Plan Patient presented with a near syncopal episode and was intermittently bradycardiac. Admitted to stepdown for observation. Cardiology consulted. Has not had further episodes of bracycardia but still has some chest discomfort. D iscussed with [facility] [employer] [facility]AMIN[facility] for Cardiology and plan is for cardiac cath tomorrow for futher evaluation. Remain on telemetry. Diagnosis/Problems Diagnosis/Problems (1) Near syncope (2) Chest pain Status: Acute Supervisory-Addendum Brief Verification & Attestation Participated in pt care: history, MDM, physical Personally performed: exam, history, MDM, supervision of care Care discussed with: Medical Student Procedures: n/a Results interpretation: Verified all documentation Verification and Attestation of Medical Student E/M Service A medical student performed and documented this service in my presence. I reviewed and verified all information documented by the medical student and made modifications to such information, when appropriate. I personally performed the physical exam and medical decision making. Eva Melton, Apr 13, 2020,14:16 RADHA HAWKINS,MED STUDENT Apr 13, 2020 08:52 EVA MELTON MD Apr 13, 2020 14:23
[2020-04-13] MEDS ORDERED: TICAGRELOR 90 MG TABLET (BRILINTA) PO STA (09:50)
[2020-04-13] MEDS: ENOXAPARIN 80 MG/0.8 ML (LOVENOX) SYR SC SCH ×2 (09:50→21:16)
--- NOTE | 2020-04-13 11:20 | Consultation-Cardiology ---
HPI-Cardiology Cardiology Consultation: Date of Consultation 04/13/20 Time Seen by a Provider: 10:00 Date of Admission Attending Physician Alondra Davis MD Admitting Physician No,Local Physician Consulting Physician DREW DAN MD, MA, FACP, FACC, FSCAI, CCDS HPI: Chief Complaint: CC: Chest pain HPI Mr. Wang is a 79 yr old male admitted to [facility] from the ED with c/o CP. He is from [place], [place] and is visiting his son and grandson. He woke up around 11:30 last night to use the BR. He reports he sat up on the side of the bed and felt weak, dizzy. He sat down for a few minutes, began to feel better. He got up and walked to the bathroom, but began to feel weak, dizzy, SOB, diaphoretic and his legs gave out on him. He states he caught himself on the bathroom vanity and feel to his knees. His heard him and found him on the floor. He was unable to get himself up on his own. His son came and helped him. He was initially having epigastric discomfort. He was able to get to the dining room table with assistance from his son. He was having chest pressure radiating across his chest. He states he still felt weak, dizzy, clammy. He reports it lasted for approx 45 minutes. He states he did take one nitro at home, which did help. He states this morning while getting up to use the urinal he did have some lower chest discomfort which did not radiate. Rates it as a 1 on a 1-10 pain scale. Review of Systems-Cardiology Review of Systems Constitutional: No chills, No fever; lightheadedness Eyes: No vision change Ears/Nose/Throat: No epistaxis, No recent hearing loss Respiratory: As described under HPI Cardiovascular: As described under HPI Gastrointestinal: No diarrhea, No nausea, No vomiting Genitourinary: No dysuria, No hematuria Musculoskeletal: back pain Skin: No rash on exposed areas, No ulcerations on exposed areas Psychiatric/Neurological: As described under HPI Hematologic: No bleeding abnormalities [id number] Hx Patient Social History Marrital Status: Smoking Status: Former Smoker (Quit 50 years ago) Immunizations Up To Date Date of Influenza Vaccine: Dec 14, 2019 Past Medical History PMH As described under Assessment. Family Medical History Family Medical History: He reports his mother had CAD and AR. He reports his father at age 55 from an AR. He reports a brother with CAD who was on the transplant list, . He reports a sister with an AR. He reports a brother with cardiomyopathy. He reports another brother with CAD. He reports 2 daughters and a son with Factor V Leiden Allergies and Home Medications Allergies Coded Allergies: No Known Drug Allergies (Unverified , 04/13/20) Patient Home Medication List Home Medication List Reviewed: Yes Physical Exam-Cardiology Physical Exam Vital Signs/I&O 04/13/20 04/13/20 04/13/20 04/13/20 00:30 00:30 06:35 06:52 Temp 37.0 Pulse 59 61 62 Resp 16 14 B/P (MAP) 115/81 (92) 107/62 Pulse Ox 97 95 O2 Delivery Room Air Room Air 04/13/20 08:38 Temp 36.7 Pulse 66 Resp 15 B/P (MAP) 119/68 (85) Pulse Ox 95 O2 Delivery Room Air Capillary Refill : Less Than 3 Seconds Constitutional: AAO x 3, well-developed, well-nourished HEENT: PERRL, hearing is well preserved, oral hygience is good Neck: No carotid bruit; carotid pulses are 2 + bilaterally Respiratory: No accessory muscle use, No respiratory distress; chest expansion is symmetric, chest is bilaterally symmetric, lungs clear to auscultation Cardiovascular: regular rate-rhythm; No JVD; S1 and S2 Gastrointestinal: No tender; soft, round, audible bowel sounds Extremities: no lower extremity edema bilateral Neurologic/Psychiatric: other (moves all limbs equally) Skin: No rash on exposed areas, No ulcerations on exposed areas Data Review Labs Laboratory Tests 04/13/20 00:30: White Blood Count 9.9, Red Blood Count 4.42, Hemoglobin 13.1L, Hematocrit 38L, Mean Corpuscular Volume 86, Mean Corpuscular Hemoglobin 30, Mean Corpuscular Hemoglobin Concent 35, Red Cell Distribution Width 12.8, Platelet Count 190, Mean Platelet Volume 10.7, Immature Granulocyte % (Auto) 0, Neutrophils (%) (Auto) 49, Lymphocytes (%) (Auto) 42, Monocytes (%) (Auto) 7, Eosinophils (%) (Auto) 1, Basophils (%) (Auto) 0, Neutrophils # (Auto) 4.8, Lymphocytes # (Auto) 4.2H, Monocytes # (Auto) 0.7, Eosinophils # (Auto) 0.1, Basophils # (Auto) 0.0, Immature Granulocyte # (Auto) 0.0, Prothrombin Time 13.3, INR Comment 1.0, Activated Partial Thromboplast Time 26, Sodium Level 137, Potassium Level 3.2L, Chloride Level 96L, Carbon Dioxide Level 25, Anion Gap 16H, Blood Urea Nitrogen 16, Creatinine 1.23, Estimat Glomerular Filtration Rate 57, BUN/Creatinine Ratio 13, Glucose Level 157H, Calcium Level 9.6, Corrected Calcium 9.5, Magnesium Level 2.1, Total Bilirubin 0.7, Aspartate Amino Transf (AST/SGOT) 24, Alanine Aminotransferase (ALT/SGPT) 21, Alkaline Phosphatase 81, Total Creatine Kinase 134, Creatine Kinase MB 3.0, Myoglobin 91.3, Troponin I < 0.028, B-Type Natriuretic Peptide 15.4, Total Protein 7.7, Albumin 4.1 04/13/20 00:40: Coronavirus 2019 ([facility]) Negative 04/13/20 04:10: Troponin I < 0.028 04/13/20 04:46: Urine Color YELLOW, Urine Clarity CLEAR, Urine pH 8.0, Urine Specific [place] 1.010L, Urine Protein NEGATIVE, Urine Glucose (UA) NEGATIVE, Urine Ketones NEGATIVE, Urine Nitrite NEGATIVE, Urine Bilirubin NEGATIVE, Urine Urobilinogen 0.2, Urine Leukocyte Esterase NEGATIVE, Urine RBC (Auto) 1+H, Urine RBC 2-5H, Urine WBC RARE, Urine Squamous Epithelial Cells NONE, Urine Crystals NONE, Urine Bacteria NEGATIVE, Urine Casts NONE, Urine Mucus NEGATIVE, Urine Culture Indicated NO A/P-Cardiology Assessment/Admission Diagnosis Chest pain of undetermined etiology Syncope of undetermined etiology CAD with h/o AR in 2019 - h/o stent placed in 2019 at [facility] in [place], [place] - Dr. Poole is primary eyeglass fitter INTOLERANT TO PLAVIX - reports ALCANTAR, weakness - able to tolerate Brilinta Hypokalemia likely d/t chronic diuretic regimen HTN HLD - statin tx GERD H/O Factor V Leiden (2 daughters and a son also are +) H/O "phlebitis" in right arm for which he completed 6 months of Eliquis Chronic migraines Chronic hip, back pain H/O Rheumatic fever as a child Thyroid nodule seen on CTA on 04-12-20 - advise out pt f/u Family h/o CAD (mother, father, 3 brothers and a sister) Discussion and Recomendations Chest pain of undetermined etiology with h/o CAD and other risk factors as noted above. He has had another episode of chest discomfort, could be angina. Advise cardiac cath. We have discussed the procedure, risks, benefits and potential complications of cardiac cath with possible ad hoc coronary intervention. He verbalizes understanding and provides informed consent. Continue ASA Change Lovenox to therapeutic dosing He reports episodes of bradycardia in the ED with HR in the 30's. This makes him not suitable for BB tx. Continue home medications of ARB and statin Mild hypokalemia - stop diuretic regimen Echocardiogram today to eval structure and function Request records from [facility] in [place], [place] Further recs will be based on his hospital course We would like to thank Medical services for this consult Clinical Quality Measures AMI/AHF: ASA po Prior to arrival: DREW Sanford MD FACP FACC CCDS Apr 13, 2020 11:20
[2020-04-13] MEDS ORDERED: ATOR40TA70 PO (11:25)
[2020-04-13] MEDS ORDERED: CHLO25TA22 PO (11:25)
[2020-04-13] MEDS ORDERED: LEVE500T6 PO (11:25)
[2020-04-13] MEDS ORDERED: MULT-1136 PO (11:25)
[2020-04-13] MEDS ORDERED: FINA5TAB6 PO (11:25)
[2020-04-13] MEDS ORDERED: AMLO-251 PO (11:25)
[2020-04-13] MEDS ORDERED: MAGN500C15 PO (11:25)
[2020-04-13] MEDS ORDERED: TURM500C4 PO (11:25)
[2020-04-13] MEDS ORDERED: ACET125T2 PO (11:25)
[2020-04-13] MEDS ORDERED: IRBE300T17 PO (11:25)
[2020-04-13] MEDS ORDERED: CALC1TAB35 PO (11:25)
[2020-04-13] MEDS ORDERED: PROC10TA10 PO (11:25)
[2020-04-13] MEDS ORDERED: EREN70AU2 SQ (11:25)
[2020-04-13] MEDS ORDERED: OMEP20TA33 PO (11:25)
[2020-04-13] MEDS ORDERED: [UNRECOGNIZED DRUG - CODE] PO (11:25)
[2020-04-13] MEDS ORDERED: LORA10TA76 PO (11:25)
[2020-04-13] MEDS ORDERED: ORPH100T PO ×2 (11:25)
[2020-04-13] MEDS ORDERED: ASPI-1238 PO (11:25)
[2020-04-13] MEDS ORDERED: MELA5TAB14 PO (11:25)
[2020-04-13] MEDS ORDERED: TMSL.4C PO (11:25)
[2020-04-13] MEDS ORDERED: NITR0.4T42 SL (11:25)
[2020-04-13 11:48] VITALS: BP 135/75
[2020-04-13] MEDS ORDERED: PROCHLORPERAZINE 10 MG TAB (COMPAZINE) PO PRN (14:30)
[2020-04-13] MEDS ORDERED: NON-FORMULARY MEDICATION 1 EA EA (Orphenadrine Citrate 100 MG) PO PRN (14:30)
[2020-04-13] MEDS ORDERED: PANTOPRAZOLE 20 MG TABLET (PROTONIX) PO PRN (14:45)
[2020-04-13] MEDS ORDERED: acetaZOLAMIDE 250 MG (DIAMOX) TAB PO PRN (14:45)
[2020-04-13 15:28] VITALS: BP 133/58
[2020-04-13] MEDS: CALCIUM CARBONATE 600 MG (CALCARB) TAB PO SCH (16:49)
[2020-04-13] MEDS: LOSARTAN 100 MG (COZAAR) TABLET PO SCH (16:49)
[2020-04-13] MEDS: amLODIPine 10 MG (NORVASC) TAB PO SCH (16:50)
[2020-04-13] MEDS ORDERED: polyethylene glycoL POWDER 17 GM (MIRALAX) PACK ONE (18:43)
[2020-04-13] MEDS ORDERED: PSYLLIUM POWDER (METAMUCIL) 5.8 GM PACKET PO ONE (18:45)
[2020-04-13] MEDS ORDERED: polyethylene glycoL POWDER 17 GM (MIRALAX) PACK PO NR (19:00)
[2020-04-13 19:29] VITALS: BP 120/96
[2020-04-13] MEDS: TICAGRELOR 90 MG TABLET (BRILINTA) PO SCH (20:31)
[2020-04-13] MEDS: LEVETIRACETAM 500 MG (KEPPRA) TAB PO SCH (20:31)
[2020-04-13] MEDS: MELATONIN 10 MG TABLET PO SCH (20:31)
[2020-04-13] MEDS ORDERED: NON-FORMULARY MEDICATION 1 EA EA (Orphenadrine Citrate 100 MG) PO SCH (21:00)
[2020-04-14] VITALS (14 sets, daily range): BP systolic 126–152; BP diastolic 67–84
[2020-04-14] MEDS: 1/2 NS W/KCL 20 MEQ/L 1,000 ML IV SCH ×3 (01:23→16:53)
[2020-04-14 04:07] LABS: BASOPHILS % (AUTO) 0 % (0-10); EOSINOPHILS # (AUTO) 0.2 10^3/uL (0.0-0.3); EOSINOPHILS % (AUTO) 2 % (0-10); HEMATOCRIT 36 % (40-54); HEMOGLOBIN 12.3 g/dL (13.3-17.7); LYMPHOCYTES # (AUTO) 2.6 10^3/uL (1.0-4.0); LYMPHOCYTES % (AUTO) 30 % (12-44); MEAN CORPUSCULAR HEMOGLOBIN 29 pg (25-34); MEAN CORPUSCULAR HGB CONC 34 g/dL (32-36); MEAN CORPUSCULAR VOLUME 85 fL (80-99); MEAN PLATELET VOLUME 10.3 fL (9.0-12.2); MONOCYTES # (AUTO) 0.6 10^3/uL (0.0-1.0); MONOCYTES % (AUTO) 8 % (0-12); NEUTROPHILS # (AUTO) 5.2 10^3/uL (1.8-7.8); NEUTROPHILS % (AUTO) 60 % (42-75); PLATELET COUNT 167 10^3/uL (130-400); WHITE BLOOD COUNT 8.6 10^3/uL (4.3-11.0)
[2020-04-14 04:12] LABS: PROTHROMBIN TIME PATIENT 13.4 SEC (12.2-14.7)
[2020-04-14 04:15] LABS: ALBUMIN 3.7 GM/DL (3.2-4.5); CHLORIDE 101 MMOL/L (98-107); POTASSIUM 3.5 MMOL/L (3.6-5.0); SODIUM 135 MMOL/L (135-145)
[2020-04-14 04:17] LABS: CALCIUM 8.6 MG/DL (8.5-10.1); TRIGLYCERIDES 159 MG/DL (<150); VLDL CHOLESTEROL 32 MG/DL (5-40)
[2020-04-14 04:18] LABS: GLUCOSE 103 MG/DL (70-105); TOTAL PROTEIN 6.5 GM/DL (6.4-8.2)
[2020-04-14 04:19] LABS: CARBON DIOXIDE 25 MMOL/L (21-32)
[2020-04-14 04:21] LABS: ALKALINE PHOSPHATASE 80 U/L (40-136); CREATININE SERUM 1.01 MG/DL (0.60-1.30); GFR ESTIMATED > 60
[2020-04-14 04:22] LABS: CHOLESTEROL 96 MG/DL (< 200)
[2020-04-14 04:23] LABS: BUN/CREATININE RATIO 14
[2020-04-14 04:24] LABS: HDL CHOLESTEROL 32 MG/DL (40-60)
[2020-04-14 04:25] LABS: ALANINE AMINOTRANSFERASE 22 U/L (0-55)
[2020-04-14] MEDS: NS IV 1000 ML 1,000 ML IV SCH ×3 (06:14→20:58)
[2020-04-14] MEDS: MULTIVIT W/MINERALS TAB (THERAGRAN M) PO SCH (06:14)
[2020-04-14] MEDS ORDERED: HEParin (CATH LAB) 2,000 ML IV ONE (06:49)
[2020-04-14] MEDS ORDERED: LIDOCAINE 1% INJ 20 ML 20 ML VIAL ONE (06:49)
[2020-04-14] MEDS: LEVETIRACETAM 500 MG (KEPPRA) TAB PO SCH ×2 (08:37→20:59)
[2020-04-14] MEDS: TAMSULOSIN 0.4 MG (FLOMAX) CAP PO SCH (08:37)
[2020-04-14] MEDS: CALCIUM CARBONATE 600 MG (CALCARB) TAB PO SCH ×2 (08:37→18:19)
[2020-04-14] MEDS: TICAGRELOR 90 MG TABLET (BRILINTA) PO SCH ×2 (08:37→20:58)
[2020-04-14] MEDS: MAGNESIUM OXIDE (MAG-OX)400 MG TAB PO SCH (08:37)
[2020-04-14] MEDS: FINASTERIDE (PROSCAR) 5 MG TAB PO SCH (08:37)
[2020-04-14] MEDS: LORATADINE (CLARITIN) 10 MG TAB PO SCH (08:37)
[2020-04-14] MEDS ORDERED: fentaNYL INJECTION 100 MCG/2 ML AMP ONE ×2 (08:58→12:51)
[2020-04-14] MEDS ORDERED: MIDAZOLAM 5 MG/5 ML (VERSED) VIAL ONE (08:58)
[2020-04-14] MEDS ORDERED: NON-FORMULARY MEDICATION 1 EA EA (Turmeric/Turmeric Root Extract (Turmeric 500 mg Capsule) PO SCH (09:00)
[2020-04-14] MEDS ORDERED: RIBOFLAVIN 100 MG PO SCH (09:00)
[2020-04-14] MEDS ORDERED: ASPIRIN E.C. 81 MG (ECOTRIN) TAB PO SCH (09:00)
[2020-04-14] MEDS ORDERED: HEParin 1000 UNIT/ML (10ML VIAL) FOR BOLUS ONE (09:51)
[2020-04-14] MEDS ORDERED: NITRO DRIP 25000 MCG/D5W 0 ML IV ONE (09:51)
[2020-04-14] MEDS ORDERED: EPTIFIBATIDE BOLUS 20 ML IV ONE (09:55)
[2020-04-14] MEDS: ENOXAPARIN 80 MG/0.8 ML (LOVENOX) SYR SC SCH ×2 (10:05→21:00)
[2020-04-14] MEDS ORDERED: TICAGRELOR 90 MG TABLET (BRILINTA) PO ONE (10:14)
[2020-04-14] MEDS ORDERED: ASPIRIN 81 MG CHEW (CHILDREN'S ASA) ONE (10:14)
--- NOTE | 2020-04-14 10:32 | Progress Note - Cardiology ---
Cardiology SOAP Progress Note Subjective: Occasional, intermittent chest discomfort (prior to today's cor intervention) No palp or syncope or shortness of breath No n/v/d Denies weakness Some gen malaise present Objective: I&O/Vital Signs 04/14/20 04/14/20 04/14/20 04/14/20 00:00 01:00 04:00 06:50 Pulse 65 62 60 56 Resp 20 17 B/P (MAP) 128/72 (90) Pulse Ox 98 O2 Delivery Room Air Room Air 04/14/20 08:07 Temp 36.5 Pulse 64 Resp 19 B/P (MAP) 135/73 (93) Pulse Ox 95 O2 Delivery Room Air 04/14/20 00:00 Intake Total 2690 ml Output Total 1225 ml Balance 1465 ml Constitutional: AAO x 3, well-developed, well-nourished Respiratory: No accessory muscle use, No respiratory distress; chest expansion is symmetric, chest is bilaterally symmetric, lungs clear to auscultation Cardiovascular: regular rate-rhythm; No JVD; S1 and S2 Gastrointestional: No tender; soft, round, audible bowel sounds Extremities: no lower extremity edema bilateral Neurologic/Psychiatric: other (moves all limbs equally) Skin: No rash on exposed areas, No ulcerations on exposed areas Results/Procedures: Labs Laboratory Tests 04/14/20 03:45: White Blood Count 8.6, Red Blood Count 4.27L, Hemoglobin 12.3L, Hematocrit 36L, Mean Corpuscular Volume 85, Mean Corpuscular Hemoglobin 29, Mean Corpuscular Hemoglobin Concent 34, Red Cell Distribution Width 12.9, Platelet Count 167, Mean Platelet Volume 10.3, Immature Granulocyte % (Auto) 0, Neutrophils (%) (Auto) 60, Lymphocytes (%) (Auto) 30, Monocytes (%) (Auto) 8, Eosinophils (%) (Auto) 2, Basophils (%) (Auto) 0, Neutrophils # (Auto) 5.2, Lymphocytes # (Auto) 2.6, Monocytes # (Auto) 0.6, Eosinophils # (Auto) 0.2, Basophils # (Auto) 0.0, Immature Granulocyte # (Auto) 0.0, Prothrombin Time 13.4, INR Comment 1.0, Activated Partial Thromboplast Time 31, Sodium Level 135, Potassium Level 3.5L, Chloride Level 101, Carbon Dioxide Level 25, Anion Gap 9, Blood Urea Nitrogen 14, Creatinine 1.01, Estimat Glomerular Filtration Rate > 60, BUN/Creatinine Ratio 14, Glucose Level 103, Calcium Level 8.6, Corrected Calcium 8.8, Total Bilirubin 1.0, Aspartate Amino Transf (AST/SGOT) 22, Alanine Aminotransferase (ALT/SGPT) 22, Alkaline Phosphatase 80, Total Protein 6.5, Albumin 3.7, Triglycerides Level 159H, Cholesterol Level 96, LDL Cholesterol Direct 49, VLDL Cholesterol 32, HDL Cholesterol 32L Microbiology 04/13/20 MRSA Screen - Final, Complete MRSA not isolated Laboratory Tests 04/13/20 00:30 04/14/20 03:45 A/P: Assessment: Unstable angina, treated with PTCA (see below) during this admission Syncope of undetermined etiology. No significant arrhythmia detected during this hosp, so far Echo on 04/13/20: LVEF 60-65%, grade 1 diastolic dysfunction of LV, AoV sclerosis w/o stenosis, mildly dilated LA, normal PASP CAD - [place] in 2019 - RCA stent (2.75 x 28) placed in 2019 at [facility] in [place], [place] - Dr. Poole is primary retail merchandising manager - PTCA for RCA stent restenosis on 04/14/20 at [place], [place] INTOLERANT TO PLAVIX - reports ALCANTAR, weakness - able to tolerate Brilinta Hypokalemia likely d/t chronic diuretic regimen HTN HLD - statin tx GERD H/O Factor V Leiden (2 daughters and a son also are +) H/O "phlebitis" in right arm for which he completed 6 months of Eliquis Chronic migraines Chronic hip, back pain H/O Rheumatic fever as a child Thyroid nodule seen on CTA on 04-12-20 - advise out pt f/u Family h/o CAD (mother, father, 3 brothers and a sister) Plan: * Treat with DAPT (ASA and Brilinta) * Change enoxaparin to DVT prophylaxis dose * Correct hypokalemia * Avoid beta-rianna (because we have not ruled out mihaela as the source of his syncope) * Consider ILR. We discussed this with him today. He feels he needs time to think about it. Currently, he feels he would probably like to have this issues addressed with his regular retail merchandising manager Dr Young * We recommend continuing hospitalization on tele for 24 more hours * Monitor labs Clinical Quality Measures AMI/AHF: ASA po Prior to arrival: DREW Sanford MD FACP FAC CCDS Apr 14, 2020 10:32
[2020-04-14] MEDS ORDERED: KCL 20 MEQ TAB (K-DUR) PO ONE ×2 (10:45→15:24)
[2020-04-14] MEDS ORDERED: PATIENT MAY USE OWN MEDS, ALL PO SCH (10:45)
--- NOTE | 2020-04-14 11:20 | Progress Note - Hospitalist ---
RADHA HAWKINS,MED STUDENT 04/14/20 1120: Subjective HPI/CC On Admission Date Seen by Provider: Apr 14, 2020 Patient is a 79yo male who presented to [facility] ED via EMS c/o weakness and a fall onto the bathroom floor. He is here visiting family and states that last night he got out of bed to go to the bathroom and his legs felt weak and "like they had no strength". He got back in bed and then tried two more times. He reports he eventually made it to the bathroom, but then his legs became too weak to stand and he fell but caught himself using the sink before he fell all the way down. He states his thinks he passed out briefly, but he denies hitting his head. He also reports feeling "clammy", looking pale and mild epigastric pain and shortness of breath. He had an TX in 12/2018 with x1 stent placed, and states the pain this time feels different and is "lower" in the abdomen. He took a nitroglycerin and says he felt better after this, and notes his epigastric pain and SOB resolved. He notes feeling fine before going to bed and has never experienced a similar episode before. He denies any recent medications changes. Per EMS, systolic blood pressure was in the 90's on arrival, but had improved to 114/67 without intervention. Subjective/Events-last exam Had heart cath today with balloon angioplasty. Prior to procedure, denied new concerns today. Denied CP, SOB. Objective Exam Vital Signs Vital Signs Date Time Temp Pulse Resp B/P (MAP) Pulse Ox O2 Delivery O2 Flow Rate FiO2 04/14/20 11:00 56 20 128/69 (88) 96 Room Air 04/14/20 08:07 36.5 Capillary Refill : Less Than 3 Seconds General Appearance: No Apparent Distress, WD/WN HEENT: PERRL/EOMI, Pharynx Normal Neck: Full Range of Motion, Non Tender, Supple Respiratory: Lungs Clear, No Accessory Muscle Use, No Respiratory Distress Cardiovascular: Regular Rate, Rhythm, No Edema, No Murmur, Normal Peripheral Pulses Gastrointestinal: Normal Bowel Sounds, Non Tender, Soft Extremity: Normal Capillary Refill, No Calf Tenderness, No Pedal Edema Neurologic/Psychiatric: Alert, Oriented x3, Normal Mood/Affect Skin: Normal Color, Warm/Dry Results/Procedures Lab Laboratory Tests 04/14/20 03:45 Patient resulted labs reviewed. Assessment/Plan Assessment and Plan Assess & Plan/Chief Complaint Syncopal episode Underwent heart cath today with balloon angioplasty Echo yesterday, EF 60-65%, grade 1 diastolic dysfunction per report Cardiology following Lovenox DVT prophylaxis dose Hypokalemia Replacing Hold diuretics Hypertension Hold home medications Continue to monitor Hyperlipidemia Continue atorvastatin Clinical Quality Measures AMI/AHF: ASA po Prior to arrival: No EVA MELTON MD 04/14/20 1226: Subjective HPI/CC On Admission Time Seen by Provider: 11:15 Assessment/Plan Assessment and Plan Assess & Plan/Chief Complaint Pt had just returned from roofing laborer. Per roofing laborer RN reports that he had in stent thrombosis that was ballooned. Patient reports no complaints. Discussed plan to stay in the hospital at least another night and he is agreeable. Continue ASA. Started on Brilinta by cardiology. Supervisory-Addendum Brief Verification & Attestation Participated in pt care: history, MDM, physical Personally performed: exam, history, MDM, supervision of care Care discussed with: Medical Student Procedures: n/a Results interpretation: Verified all documentation Verification and Attestation of Medical Student E/M Service A medical student performed and documented this service in my presence. I reviewed and verified all information documented by the medical student and made modifications to such information, when appropriate. I personally performed the physical exam and medical decision making. Eva Melton, Apr 14, 2020,12:20 RADHA HAWKINS,MED STUDENT Apr 14, 2020 11:20 EVA MELTON MD Apr 14, 2020 12:26
[2020-04-14] MEDS ORDERED: ATROPINE INJECTION 1 MG/10 ML SYR (ABBOTT) ONE (12:51)
[2020-04-14] MEDS ORDERED: LIDOCAINE UROJET 2% GEL 10 ML PKG ONE (12:59)
[2020-04-14] MEDS: LOSARTAN 100 MG (COZAAR) TABLET PO SCH (18:19)
[2020-04-14] MEDS: amLODIPine 10 MG (NORVASC) TAB PO SCH (18:19)
[2020-04-14] MEDS: MELATONIN 10 MG TABLET PO SCH (20:59)
[2020-04-15] VITALS: BP 123/63
[2020-04-15 03:18] LABS: BASOPHILS % (AUTO) 0 % (0-10); EOSINOPHILS # (AUTO) 0.1 10^3/uL (0.0-0.3); EOSINOPHILS % (AUTO) 1 % (0-10); HEMATOCRIT 36 % (40-54); LYMPHOCYTES # (AUTO) 1.2 10^3/uL (1.0-4.0); LYMPHOCYTES % (AUTO) 15 % (12-44); MEAN CORPUSCULAR HEMOGLOBIN 29 pg (25-34); MEAN CORPUSCULAR HGB CONC 34 g/dL (32-36); MEAN CORPUSCULAR VOLUME 85 fL (80-99); MEAN PLATELET VOLUME 10.4 fL (9.0-12.2); MONOCYTES # (AUTO) 0.6 10^3/uL (0.0-1.0); MONOCYTES % (AUTO) 8 % (0-12); NEUTROPHILS # (AUTO) 6.6 10^3/uL (1.8-7.8); NEUTROPHILS % (AUTO) 77 % (42-75); PLATELET COUNT 166 10^3/uL (130-400); WHITE BLOOD COUNT 8.6 10^3/uL (4.3-11.0)
[2020-04-15 03:30] LABS: CHLORIDE 102 MMOL/L (98-107); POTASSIUM 3.4 MMOL/L (3.6-5.0); SODIUM 135 MMOL/L (135-145)
[2020-04-15 03:31] LABS: CALCIUM 8.7 MG/DL (8.5-10.1); GLUCOSE 110 MG/DL (70-105)
[2020-04-15 03:33] LABS: CARBON DIOXIDE 23 MMOL/L (21-32)
[2020-04-15 03:35] LABS: CREATININE SERUM 0.88 MG/DL (0.60-1.30); GFR ESTIMATED > 60
[2020-04-15 03:36] LABS: BUN/CREATININE RATIO 14
[2020-04-15 03:38] LABS: MAGNESIUM 1.7 MG/DL (1.6-2.4)
[2020-04-15 04:00] VITALS: BP 123/65
[2020-04-15] MEDS: NS IV 1000 ML 1,000 ML IV SCH ×2 (05:48→06:46)
[2020-04-15 07:19] VITALS: BP 127/67
[2020-04-15] MEDS: ENOXAPARIN 80 MG/0.8 ML (LOVENOX) SYR SC SCH (08:17)
[2020-04-15] MEDS: TICAGRELOR 90 MG TABLET (BRILINTA) PO SCH (08:17)
[2020-04-15] MEDS: MAGNESIUM OXIDE (MAG-OX)400 MG TAB PO SCH (08:17)
[2020-04-15] MEDS: LEVETIRACETAM 500 MG (KEPPRA) TAB PO SCH (08:18)
[2020-04-15] MEDS: MULTIVIT W/MINERALS TAB (THERAGRAN M) PO SCH (08:18)
[2020-04-15] MEDS: CALCIUM CARBONATE 600 MG (CALCARB) TAB PO SCH (08:18)
[2020-04-15] MEDS: LORATADINE (CLARITIN) 10 MG TAB PO SCH (08:18)
[2020-04-15] MEDS: TAMSULOSIN 0.4 MG (FLOMAX) CAP PO SCH (08:18)
[2020-04-15] MEDS: FINASTERIDE (PROSCAR) 5 MG TAB PO SCH (08:18)
[2020-04-15] MEDS ORDERED: ASPIRIN 81 MG CHEW (CHILDREN'S ASA) PO SCH (09:00)
[2020-04-15] MEDS ORDERED: TICA90TA PO (10:00)
[2020-04-15] MEDS ORDERED: ATOR40TA PO (10:00)
[2020-04-15] MEDS ORDERED: ASPI-999 PO (10:01)
--- NOTE | 2020-04-15 10:13 | Progress Note - Cardiology ---
Cardiology SOAP Progress Note Subjective: No cp or palp or syncope No shortness of breath No groin or leg discomfort or discoloration No n/v/d No focal weakness Wishes to go home Objective: I&O/Vital Signs 04/14/20 04/15/20 04/15/20 04/15/20 23:41 00:00 01:00 04:00 Pulse 69 71 70 Resp 20 11 B/P (MAP) 123/63 (83) 123/65 (84) Pulse Ox 96 96 99 O2 Delivery Room Air Room Air Room Air 04/15/20 04/15/20 06:30 07:19 Temp 37.2 Pulse 69 69 Resp 19 B/P (MAP) 127/67 (87) Pulse Ox 97 04/15/20 00:00 Intake Total 150 ml Output Total 850 ml Balance -700 ml Groin site without hematoma: Yes Condition: DP/PT pulses palpable Bruising: mild bruising Constitutional: AAO x 3, well-developed, well-nourished Respiratory: No accessory muscle use, No respiratory distress; chest expansion is symmetric, chest is bilaterally symmetric, lungs clear to auscultation Cardiovascular: regular rate-rhythm; No JVD; S1 and S2 Gastrointestional: No tender; soft, round, audible bowel sounds Extremities: no lower extremity edema bilateral Neurologic/Psychiatric: other (moves all limbs equally) Skin: No rash on exposed areas, No ulcerations on exposed areas Results/Procedures: Labs Laboratory Tests 04/15/20 03:01: White Blood Count 8.6, Red Blood Count 4.19L, Hemoglobin 12.0L, Hematocrit 36L, Mean Corpuscular Volume 85, Mean Corpuscular Hemoglobin 29, Mean Corpuscular Hemoglobin Concent 34, Red Cell Distribution Width 12.9, Platelet Count 166, Mean Platelet Volume 10.4, Immature Granulocyte % (Auto) 0, Neutrophils (%) (Auto) 77H, Lymphocytes (%) (Auto) 15, Monocytes (%) (Auto) 8, Eosinophils (%) (Auto) 1, Basophils (%) (Auto) 0, Neutrophils # (Auto) 6.6, Lymphocytes # (Auto) 1.2, Monocytes # (Auto) 0.6, Eosinophils # (Auto) 0.1, Basophils # (Auto) 0.0, Immature Granulocyte # (Auto) 0.0, Sodium Level 135, Potassium Level 3.4L, Chloride Level 102, Carbon Dioxide Level 23, Anion Gap 10, Blood Urea Nitrogen 12, Creatinine 0.88, Estimat Glomerular Filtration Rate > 60, BUN/Creatinine Ratio 14, Glucose Level 110H, Calcium Level 8.7, Magnesium Level 1.7 Microbiology 04/13/20 MRSA Screen - Final, Complete MRSA not isolated Laboratory Tests 04/14/20 03:45 04/15/20 03:01 A/P: Assessment: Unstable angina, treated with PTCA (see below) during this admission Near-syncope of undetermined etiology. No significant arrhythmia detected during this hospitalization Echo on 04/13/20: LVEF 60-65%, grade 1 diastolic dysfunction of LV, AoV sclerosis w/o stenosis, mildly dilated LA, normal PASP CAD - [place] in 2019 - RCA stent (2.75 x 28) placed in 2019 at [facility] in [place], [place]. Dr. Poole is primary special needs child caregiver - Last card cath on 04/14/09: mild cor calcification and coronary plaque in the left coronary system, 70-80% instent restenosis in the mid-RCA, LVEF 60-65% - PTCA for RCA stent restenosis on 04/14/20 at [place], [place] INTOLERANT TO PLAVIX - reports ALCANTAR, weakness - able to tolerate Brilinta Hypokalemia likely d/t chronic diuretic regimen HTN HLD - statin tx GERD H/O Factor V Leiden (2 daughters and a son also are +) H/O "phlebitis" in right arm for which he completed 6 months of Eliquis Chronic migraines Chronic hip, back pain H/O Rheumatic fever as a child Thyroid nodule seen on CTA on 04-12-20 - advised out pt f/u Family h/o CAD (mother, father, 3 brothers and a sister) Plan: * Treat with DAPT (ASA and Brilinta) * Correct hypokalemia * D/c diuretics * Avoid beta-rianna (because we have not ruled out mihaela as the source of his syncope) * I had a long and detailed discussion with him, his , and his daughter regarding his CV issues * We have not found a reason for near-syncope on day of admission (vasovagal vs arrhythmia). No significant arrhythmia has been documented. We recommend further w/u for syncope. He states he will have that done with his special needs child caregiver Dr Poole * We have advised against driving or operating machinery until seen and cleared by his special needs child caregiver * We have advised w/u on the thyroid nodule with his pcp * He and his family understand all of the above and states they will comply Clinical Quality Measures AMI/AHF: ASA po Prior to arrival: DREW Sanford MD FACP FAC CCDS Apr 15, 2020 10:13
[2020-04-15] MEDS ORDERED: KCL 20 MEQ TAB (K-DUR) PO ONE ×2 (10:15→10:35)
--- NOTE | 2020-04-15 11:36 | Discharge Inst-Simple/Standard ---
Discharge Inst-Standard Discharge Medications New, Converted or Re-Newed RX: Transmitted to Pharmacy Patient Instructions/Follow Up Plan of Care/Instructions/FU: Please continue to take your medications as written. Please follow up with your primary care provider and your general education professor in the next 1-2 weeks. Activity as Tolerated: Yes Discharge Diet: Cardiac Diet Return to The Hospital For: Chest pain, shortness of breath, low heart rate, dizziness, passing out, if you feel you are getting worse. EVA ADAMES MD Apr 15, 2020 11:36
--- NOTE | 2020-04-15 13:07 | Discharge Summary ---
RADHA HAWKINS,MED STUDENT 04/15/20 1306: Diagnosis/Chief Complaint Date of Admission Apr 13, 2020 at 04:25 Date of Discharge Discharge Date: Apr 14, 2020 Admission Diagnosis Chest pain and near syncope Primary Care No,Local Physician Discharge Diagnosis (1) Near syncope (2) Chest pain Status: Acute Discharge Summary Discharge Physical Exam Allergies: Coded Allergies: clopidogrel (Verified Adverse Reaction, Unknown, headache, weakness, 04/15/20) Vitals & I&Os Vital Signs Date Time Temp Pulse Resp B/P (MAP) Pulse Ox O2 Delivery O2 Flow Rate FiO2 04/15/20 07:19 37.2 69 19 127/67 (87) 97 04/15/20 04:00 Room Air General Appearance: No Apparent Distress, WD/WN HEENT: PERRL/EOMI, Pharynx Normal Respiratory: Lungs Clear, No Accessory Muscle Use, No Respiratory Distress Cardiovascular: Regular Rate, Rhythm, No Murmur, Normal Peripheral Pulses Gastrointestinal: Normal Bowel Sounds, Non Tender, Soft Extremity: Normal Capillary Refill, No Calf Tenderness, No Pedal Edema Skin: Normal Color, Warm/Dry Neurologic/Psychiatric: Alert, Oriented x3, Normal Mood/Affect Hospital Course Patient is a 79yo male with a PMH of CAD, [place] with stent placement, HTN, HLD and migraines who presented to [facility] ED via EMS on 04/13 due to weakness and a fall onto the bathroom floor. He and his were here visiting family when he got up overnight to use the bathroom and felt weak and dizzy. He also c/o SOB, diaphoresis and mild epigastric pain. He took one nitroglycerin at home which helped his symptoms, but he became hypotensive on the way to the ED with systolic pressures in the 90's and was found to be bradycardic. After admission he did not have further episodes of bradycardia, but continued to have some d iscomfort, so he underwent a cardiac cath. He was found to have a stent restenosis, which was ballooned. After the procedure, he denied any CP or SOB. He was continued on aspirin and Brilinta, and was observed overnight. Prior to discharge, he denied any fevers, chills, dizziness, syncope, CP, SOB, or palpitations. Labs (last 24 hrs) Laboratory Tests 04/15/20 03:01: White Blood Count 8.6, Red Blood Count 4.19L, Hemoglobin 12.0L, Hematocrit 36L, Mean Corpuscular Volume 85, Mean Corpuscular Hemoglobin 29, Mean Corpuscular Hemoglobin Concent 34, Red Cell Distribution Width 12.9, Platelet Count 166, Mean Platelet Volume 10.4, Immature Granulocyte % (Auto) 0, Neutrophils (%) (Auto) 77H, Lymphocytes (%) (Auto) 15, Monocytes (%) (Auto) 8, Eosinophils (%) (Auto) 1, Basophils (%) (Auto) 0, Neutrophils # (Auto) 6.6, Lymphocytes # (Auto) 1.2, Monocytes # (Auto) 0.6, Eosinophils # (Auto) 0.1, Basophils # (Auto) 0.0, I mmature Granulocyte # (Auto) 0.0, Sodium Level 135, Potassium Level 3.4L, Chloride Level 102, Carbon Dioxide Level 23, Anion Gap 10, Blood Urea Nitrogen 12, Creatinine 0.88, Estimat Glomerular Filtration Rate > 60, BUN/Creatinine Ratio 14, Glucose Level 110H, Calcium Level 8.7, Magnesium Level 1.7 Microbiology 04/13/20 MRSA Screen - Final, Complete MRSA not isolated Patient resulted labs reviewed. Discharge Home Medications: Active Scripts Active Aspirin 81 Mg Tab.chew 81 Mg PO DAILY Lipitor (Atorvastatin Calcium) 40 Mg Tablet 40 Mg PO DAILY Brilinta (Ticagrelor) 90 Mg Tablet 90 Mg PO BID Reported Claritin (Loratadine) 10 Mg Tablet 10 Mg PO DAILY Prilosec Otc (Omeprazole Magnesium) 20 Mg Tablet.dr 20 Mg PO DAILY PRN Vitamin B-2 (Riboflavin) 100 Mg Tablet 100 Mg PO DAILY Turmeric 500 mg Capsule (Turmeric/Turmeric Root Extract) 1 Each Capsule 1 Each PO DAILY Multivitamin 1 Each Tablet 1 Each PO DAILY Calcet Petites Tablet (Calcium Carb & Lact/Vitamin D3) 1 Each Tablet 2 Each PO BID Aimovig Autoinjector (Erenumab-Aooe) 140 Mg/1 Ml Auto.injct 140 Mg SQ MONTHLY Magnesium (Magnesium Oxide) 500 Mg Capsule 500 Mg PO DAILY Melatonin 5 Mg Tablet 15 Mg PO HS TAKES 3 (5MG) TABS Prochlorperazine Maleate 10 Mg Tablet 10-20 Mg PO DAILY PRN Nitroglycerin 0.4 Mg Tab.subl 0.4 Mg SL UD PRN Finasteride 5 Mg Tablet 5 Mg PO DAILY Flomax (Tamsulosin HCl) 0.4 Mg Cap 0.4 Mg PO DAILY Levetiracetam 500 Mg Tablet 500 Mg PO BID Amlodipine Besylate 10 Mg Tablet 10 Mg PO 1800 Irbesartan 300 Mg Tablet 300 Mg PO 1800 Orphenadrine Citrate 100 Mg Tablet.er 100 Mg PO DAILY PRN Orphenadrine Citrate 100 Mg Tablet.er 100 Mg PO HS Acetazolamide 125 Mg Tablet 125 Mg PO BID PRN Instructions to patient/family Please see electronic discharge instructions given to patient. Clinical Quality Measures AMI/AHF: ASA po Prior to arrival: No EVA MELTON MD 04/15/20 1447: Discharge Summary Discharge Physical Exam Allergies: Coded Allergies: clopidogrel (Verified Adverse Reaction, Unknown, headache, weakness, 04/15/20) Discussion & Recommendations Discharge Planning: >30 minutes discharge planning Supervisory-Addendum Brief Verification & Attestation Participated in pt care: history, MDM, physical Personally performed: exam, history, MDM, supervision of care Care discussed with: Medical Student Procedures: n/a Results interpretation: Verified all documentation Verification and Attestation of Medical Student E/M Service A medical student performed and documented this service in my presence. I reviewed and verified all information documented by the medical student and made modifications to such information, when appropriate. I personally performed the physical exam and medical decision making. Eva Melton, Apr 15, 2020,14:47 RADHA HAWKINS,MED STUDENT Apr 15, 2020 13:06 EVA MELTON MD Apr 15, 2020 14:47
--- NOTE | 2020-04-15 20:11 | CARDIAC CATHETERIZATION ---
DATE OF SERVICE: 04/14/2020 CARDIAC CATHETERIZATION AND CORONARY INTERVENTION REPORT The patient is a 79-year-old gentleman who was hospitalized with symptoms of unstable angina. Cardiac catheterization was carried out on 04/14/2020 for further evaluation. DESCRIPTION OF PROCEDURE: He was brought to the cardiac catheterization laboratory in a fasting state. The right groin was prepared and draped in the usual sterile fashion. Lidocaine 1% was used for local anesthesia. Modified Seldinger technique was used to advance a 5-[place] sheath into the right femoral artery. A 5-[place] JL4 catheter was used for left coronary angiography, 5-[place] JR4 catheter was used for right coronary angiography, 5-[place] pigtail catheter was used for left heart catheterization and left ventricular angiography. Percutaneous intervention was carried out to the right coronary artery where the patient was found to have a significant in-stent restenosis. This was felt to be the culprit lesion causing his unstable angina. PERCUTANEOUS INTERVENTION TO THE RIGHT CORONARY ARTERY: Right coronary artery is known to have a 2.75 x 28 mm stent that was placed in 2019 at the outside hospital. This stent was exhibiting 70% to 80% stenosis in its distal portion. We exchanged the sheath over a wire for a 6-[place] sheath. We used a 6-[place] JR4 guide catheter to engage the right coronary artery. We used a BMW wire to cross the lesion and the tip was placed in the distal vessel. We carried out balloon angioplasty with NC Trek 2.75 x 12 mm balloon. The balloon was inflated to 22 atmospheres. Subsequent angiography revealed less than 10% residual stenosis and flow throughout the vessel is normal. He tolerated the procedure well. HEMODYNAMICS: Left ventricular end-diastolic pressure following coronary angiography was 6 mmHg. There was no significant pressure gradient on pullback across the aortic valve. Ascending aortic pressure was 113/57 with a mean of 72 mmHg. CORONARY ANGIOGRAPHY: Mild coronary calcification is seen in the proximal left coronary system. Left main coronary artery does not exhibit significant obstructive disease. Left anterior descending artery and left circumflex artery do not exhibit significant obstructive disease. Right coronary artery is dominant. It has a stent in its mid portion that was exhibiting 70% to 80% stenosis in its distal portion to which successful balloon angioplasty was carried out that reduced the stenosis to less than 10%. LEFT VENTRICULAR ANGIOGRAPHY: Left ventricular angiography was carried out in the right anterior oblique projection. Global left ventricular systolic function is normal. Left ventricular ejection fraction approximately 60% to 65%. CONCLUSIONS: 1. Coronary artery disease primarily consisting of 70% to 80% in-stent restenosis in the mid right coronary artery with a 2.75 x 28 mm stent to which successful balloon angioplasty was carried out with reduction of stenosis to less than 10% residual. The rest of the coronary system has mild plaques. 2. Normal left ventricular end-diastolic pressure. 3. Normal global left ventricular systolic function with an ejection fraction approximately 60% to 65%. Job ID: [id number] DocumentID: [id number] Dictated Date: 04/15/2020 17:11:39 Machine Biller Date: 04/15/2020 20:09:05 Dictated By: DREW DAN MD, MA, FACP, FACC,
== END 2020-04-15 12:30 | disposition home or self-care (01) ==
LOC: ER 00:35 → CATH 04:25 → CSD 04:25 → UNDOADMOB 04:25 → CSD 04:25 → INTOOBSV 04:25 → CATH 04-15 12:30 → UNDODISOB 04-15 12:30
PROVIDERS: ATTEND Internal Medicine
DX: I25.110 Atherosclerotic heart disease of native coronary artery with unstable angina pectoris (principal); I10 Essential (primary) hypertension; E78.00 Pure hypercholesterolemia, unspecified; K21.9 Gastro-esophageal reflux disease without esophagitis; M19.90 Unspecified osteoarthritis, unspecified site; G43.909 Migraine, unspecified, not intractable, without status migrainosus; G89.29 Other chronic pain; Z79.82 Long term (current) use of aspirin; Z79.899 Other long term (current) drug therapy; Z88.8 Allergy status to other drugs, medicaments and biological substances; Z87.891 Personal history of nicotine dependence
CPT/HCPCS: 70450; 71045; 71275; 74177; 80048; 80053 ×2; 80061; 81000; 82550; 82553; 83735 ×2; 83874; 83880; 84484; 85025 ×3; 85027; 85610 ×2; 85730 ×2; 87081; 92920; 93005 ×3; 93041; 93306; 93458; 94760; 96360; 96372; 99284; C1725; C1769; C1894 ×2; U0002; 36415; 87635